=== PATIENT | male | born 1945 | race African-American/Black ===

== ENCOUNTER 2021-08-23 13:53 | Inpatient (IN) | payer MEDICARE ==
[~2021-08-23 13:53] MED LIST: Iopamidol-370 76% 500 ML 1 ML ONE
[2021-08-23 15:20] LABS: #Eosinphils 0.5 thou/uL (0.0-0.7); #Lymphocytes 1.8 thou/uL (1.20-3.40); #Neutrophils 9.2 thou/uL (1.40-6.50); %Eosinophils 3.7 % (0.0-10.0); %Lymphocytes 14.5 % (21.0-51.0); %Monocytes 7.8 % (0.0-10.0); Hemoglobin 14.9 g/dL (14.0-18.0); Mean Corpuscular Hemoglobin 33.2 pg (27.0-31.0); Mean Platelet Volume 7.1 fL (7.4-10.4); Platelet Count 259 thou/uL (130-400); RBC Distribution Width 12.8 % (11.5-14.5); Red Blood Cell (RBC) Count 4.49 mill/uL (4.70-6.10); White Blood Cell (WBC) Count 12.5 thou/uL (4.8-10.8)
[2021-08-23 15:39] LABS: ALT (SGPT) 25 U/L (8-55); AST (SGOT) 50 U/L (5-34); Albumin 3.9 g/dL (3.4-4.8); Alkaline Phosphatase 85 U/L (40-110); Anion Gap 10 mmol/L (10-20); BUN (Urea Nitrogen) 15 mg/dL (8.4-25.7); Bilirubin, Total 0.7 mg/dL (0.2-1.2); Calc. Creatinine Clearance 0 mL/min (70-130); Calcium 9.8 mg/dL (7.8-10.44); Carbon Dioxide 30 mmol/L (23-31); Chloride 99 mmol/L (98-107); Globulin 4.2 g/dL (2.4-3.5); Glucose 127 mg/dL (83-110); Potassium 4.4 mmol/L (3.5-5.1); Protein, Total 8.1 g/dL (5.8-8.1); Sodium 135 mmol/L (136-145)
[2021-08-23 16:07] LABS: CKMB 51.4 ng/mL (0-6.6)
[2021-08-23] MEDS ORDERED: Acetaminophen 500 MG TAB ONE (16:19)
[2021-08-23] MEDS ORDERED: Aspirin Chewable 81 MG TAB ONE (17:46)
[2021-08-23] MEDS ORDERED: Enoxaparin Sodium 100 MG/ML SYRINGE ONE (17:47)
[2021-08-23] MEDS ORDERED: Ondansetron PF 4 MG/2 ML Vial IVP PRN (21:00)
[2021-08-23] MEDS ORDERED: Ondansetron ODT 4 MG TAB SL PRN (21:00)
[2021-08-23] MEDS ORDERED: Acetaminophen 325 MG TAB PO PRN (21:00)
[2021-08-23 21:22] LABS: CKMB 43.6 ng/mL (0-6.6)
[2021-08-23] MEDS ORDERED: Lorazepam 2 MG/ML VIAL SLOW IVP PRN (22:30)
[2021-08-24] MEDS: Sodium Chloride 0.9% 1,000 ML IV SCH ×3 (00:27→22:25)
[2021-08-24 00:32] LABS: Critical Call Chem Troponin I 2NO.LN; Troponin I 10.525 ng/mL (< 0.028)
[2021-08-24 01:10] VITALS: BMI 27.1
[2021-08-24 03:12] LABS: Bacteria/HPF None Seen HPF (None Seen); Bilirubin Negative (Negative); Blood, Urine Negative (Negative); Clarity Clear (Clear); Glucose, Urine (Dipstick) Normal (Negative); Ketone, Urine Negative (Negative); Leukocyte 25 Leu/uL (Negative); Nitrite Negative (Negative); Protein, Urine (Dipstick) 30 mg/dL (Neg-Trace); Squamous Epithelial 0-3 HPF (0-3); pH, Urine 5.5 (5.0-9.0)
[2021-08-24 03:22] LABS: Amphetamine Not Detected (NotDetected); Barbiturates Screen Not Detected (NotDetected); Benzodiazepine Screen Not Detected (NotDetected); Cocaine Metabolite Screen Not Detected (NotDetected); Methadone Not Detected (NotDetected); Methamphetamine Not Detected (NotDetected); Opiate Screen Not Detected (NotDetected); Oxycodone Screen Not Detected (NotDetected); Phencyclidine (PCP) Not Detected (NotDetected); THC/Cannabinoid Screen Not Detected (NotDetected); Tricyclic Screen Not Detected (NotDetected)
[2021-08-24 03:23] LABS: Specific Gravity, Urine 1.058 (1.002-1.036); Urine Culture Reflex Yes Yes
[2021-08-24 04:53] LABS: #Eosinphils 0.4 thou/uL (0.0-0.7); #Lymphocytes 1.9 thou/uL (1.20-3.40); #Neutrophils 6.4 thou/uL (1.40-6.50); %Basophils 0.1 % (0.0-1.0); %Eosinophils 3.7 % (0.0-10.0); %Lymphocytes 19.5 % (21.0-51.0); %Monocytes 10.3 % (0.0-10.0); %Neutrophils 66.4 % (42.0-75.0); Hemoglobin 13.9 g/dL (14.0-18.0); Mean Corpuscular Hemoglobin 34.3 pg (27.0-31.0); Mean Platelet Volume 7.8 fL (7.4-10.4); Platelet Count 215 thou/uL (130-400); RBC Distribution Width 13.1 % (11.5-14.5); Red Blood Cell (RBC) Count 4.04 mill/uL (4.70-6.10); White Blood Cell (WBC) Count 9.7 thou/uL (4.8-10.8)
[2021-08-24 05:20] LABS: Anion Gap 12 mmol/L (10-20); BUN (Urea Nitrogen) 17 mg/dL (8.4-25.7); Calc. Creatinine Clearance 69 mL/min (70-130); Carbon Dioxide 23 mmol/L (23-31); Chloride 104 mmol/L (98-107); Glucose 114 mg/dL (83-110); Sodium 135 mmol/L (136-145)
[2021-08-24] MEDS ORDERED: Enoxaparin Sodium 40 MG/0.4 ML SYRINGE SC SCH (09:00)
[2021-08-24] MEDS ORDERED: Clopidogrel Bisulfate 75 MG TAB PO SCH ×2 (12:30→13:00)
[2021-08-24] MEDS: Carvedilol 6.25 MG TAB PO SCH (16:16)
[2021-08-24 17:09] LABS: SARS-CoV-2 PCR by NAA Not Detected (NotDetected)
[2021-08-24] MEDS ORDERED: Enoxaparin Sodium 80 MG/0.8 ML SYRINGE SC SCH (21:00)
[2021-08-24] MEDS: Atorvastatin Calcium 20 MG TAB PO SCH (22:12)
[2021-08-24] MEDS: Amiodarone 200 MG TAB PO SCH (22:12)
[2021-08-24] MEDS: Amlodipine 5 MG TAB PO SCH (22:12)
[2021-08-25 04:41] LABS: #Eosinphils 0.5 thou/uL (0.0-0.7); #Lymphocytes 1.8 thou/uL (1.20-3.40); #Monocytes 0.7 thou/uL (0.11-0.59); #Neutrophils 5.3 thou/uL (1.40-6.50); %Basophils 0.3 % (0.0-1.0); %Eosinophils 6.2 % (0.0-10.0); %Lymphocytes 21.9 % (21.0-51.0); %Monocytes 7.8 % (0.0-10.0); %Neutrophils 63.7 % (42.0-75.0); Hemoglobin 13.4 g/dL (14.0-18.0); Mean Corpuscular Hemoglobin 33.2 pg (27.0-31.0); Mean Platelet Volume 7.2 fL (7.4-10.4); Platelet Count 196 thou/uL (130-400); Red Blood Cell (RBC) Count 4.05 mill/uL (4.70-6.10); White Blood Cell (WBC) Count 8.4 thou/uL (4.8-10.8)
[2021-08-25 04:51] LABS: Anion Gap 12 mmol/L (10-20); BUN (Urea Nitrogen) 16 mg/dL (8.4-25.7); Calc. Creatinine Clearance 70 mL/min (70-130); Calcium 8.5 mg/dL (7.8-10.44); Carbon Dioxide 23 mmol/L (23-31); Chloride 105 mmol/L (98-107); Glucose 118 mg/dL (83-110); Potassium 3.9 mmol/L (3.5-5.1); Sodium 136 mmol/L (136-145)
[2021-08-25] MEDS: Aspirin 81 mg Enteric Coated Tablet PO SCH (08:40)
[2021-08-25] MEDS: Amiodarone 200 MG TAB PO SCH ×2 (08:40→21:30)
[2021-08-25] MEDS: Clopidogrel Bisulfate 75 MG TAB PO SCH (08:41)
[2021-08-25] MEDS: Carvedilol 6.25 MG TAB PO SCH ×2 (08:41→16:30)
[2021-08-25] MEDS ORDERED: Amiodarone 200 MG TAB PO SCH (09:00)
[2021-08-25] MEDS ORDERED: Clopidogrel Bisulfate 75 MG TAB PO SCH (09:00)
[2021-08-25] MEDS ORDERED: Communication Order-Pharmacy FS SCH (09:45)
[2021-08-25] MEDS ORDERED: Enoxaparin Sodium 40 MG/0.4 ML SYRINGE SC SCH ×2 (09:45→21:00)
[2021-08-25] MEDS: Sodium Chloride 0.9% 1,000 ML IV SCH ×2 (16:30→21:37)
[2021-08-25] MEDS: Atorvastatin Calcium 20 MG TAB PO SCH (21:30)
[2021-08-25] MEDS: Amlodipine 5 MG TAB PO SCH (21:30)
[2021-08-26 04:15] LABS: #Eosinphils 0.5 thou/uL (0.0-0.7); #Lymphocytes 1.7 thou/uL (1.20-3.40); #Monocytes 0.8 thou/uL (0.11-0.59); #Neutrophils 4.2 thou/uL (1.40-6.50); %Basophils 0.6 % (0.0-1.0); %Eosinophils 6.8 % (0.0-10.0); %Lymphocytes 22.9 % (21.0-51.0); %Neutrophils 58.7 % (42.0-75.0); Hemoglobin 13.6 g/dL (14.0-18.0); Mean Corpuscular HGB CONC 32.3 g/dL (32.0-36.0); Mean Corpuscular Hemoglobin 32.9 pg (27.0-31.0); Mean Platelet Volume 7.1 fL (7.4-10.4); Platelet Count 195 thou/uL (130-400); RBC Distribution Width 12.7 % (11.5-14.5); Red Blood Cell (RBC) Count 4.14 mill/uL (4.70-6.10); White Blood Cell (WBC) Count 7.2 thou/uL (4.8-10.8)
[2021-08-26 04:36] LABS: Anion Gap 10 mmol/L (10-20); BUN (Urea Nitrogen) 13 mg/dL (8.4-25.7); Calc. Creatinine Clearance 76 mL/min (70-130); Calcium 9.1 mg/dL (7.8-10.44); Carbon Dioxide 26 mmol/L (23-31); Chloride 104 mmol/L (98-107); Glucose 133 mg/dL (83-110); Potassium 3.8 mmol/L (3.5-5.1); Sodium 136 mmol/L (136-145)
[2021-08-26] MEDS: Carvedilol 6.25 MG TAB PO SCH ×2 (05:36→17:38)
[2021-08-26] MEDS: Aspirin 81 mg Enteric Coated Tablet PO SCH (05:36)
[2021-08-26] MEDS: Amiodarone 200 MG TAB PO SCH ×2 (05:36→20:06)
[2021-08-26] MEDS: Clopidogrel Bisulfate 75 MG TAB PO SCH (05:37)
[2021-08-26] MEDS ORDERED: Sodium Chloride 0.9% 1,000 ML IV SCH ×2 (06:00→09:15)
[2021-08-26] MEDS ORDERED: Heparin 10,000 UNITS/ 10 ML VIAL ONE (06:30)
[2021-08-26] MEDS ORDERED: Midazolam HCl 2 mg/2 ml Vial ONE (08:15)
[2021-08-26] MEDS ORDERED: Fentanyl 100 MCG/2 ML VIAL ONE (08:15)
[2021-08-26] MEDS ORDERED: Protamine Sulfate 50 MG/5 ML VIAL ONE (08:49)
[2021-08-26] MEDS ORDERED: Nitroglycerin 0.4 MG TAB (25 Tab Bottle) SL PRN (09:14)
[2021-08-26] MEDS ORDERED: Acetaminophen/Codeine 30-300mg Tablet PO PRN ×2 (09:14)
[2021-08-26] MEDS ORDERED: Sodium Chloride 0.9% 200 ML IV PRN (09:14)
[2021-08-26] MEDS ORDERED: Iopamidol 370 76% 100 ML VIAL ONE (09:34)
[2021-08-26] MEDS ORDERED: Iopamidol 370 76% 50 ML VIAL FS ONE (09:34)
[2021-08-26] MEDS ORDERED: Lisinopril 10 MG TAB PO SCH (17:00)
[2021-08-26] MEDS ORDERED: Carvedilol 6.25 MG TAB PO SCH (17:00)
[2021-08-26] MEDS: Atorvastatin Calcium 20 MG TAB PO SCH (20:07)
[2021-08-26] MEDS: Amlodipine 5 MG TAB PO SCH (20:07)
[2021-08-27] MEDS ORDERED: Magnesium Citrate 300 ML BOT PO SCH (08:45)
[2021-08-27] MEDS: Clopidogrel Bisulfate 75 MG TAB PO SCH (08:53)
[2021-08-27] MEDS: Aspirin 81 mg Enteric Coated Tablet PO SCH (08:53)
[2021-08-27] MEDS: Amiodarone 200 MG TAB PO SCH (08:53)
[2021-08-27] MEDS: Carvedilol 6.25 MG TAB PO SCH (08:53)
[2021-08-27] MEDS ORDERED: Lisinopril 10 MG TAB PO SCH (09:00)
[2021-08-27] MEDS ORDERED: Senokot S 8.6-50 MG TAB PO SCH (09:00)
[2021-08-27 11:54] VITALS: TEMP 98.8
[2021-08-27 12:05] VITALS: BP 133/80
== END 2021-08-27 15:04 | disposition home or self-care (01) | DRG 281 ==
LOC: ERS 13:53 → 2NO 20:39
PROVIDERS: ADMIT Internal Medicine; ATTEND Family Medicine
PROC: 4A023N7 Measurement of Cardiac Sampling and Pressure, Left Heart, Percutaneous Approach (ICD-10-PCS; principal; 2021-08-26)
PROC: B2151ZZ Fluoroscopy of Left Heart using Low Osmolar Contrast (ICD-10-PCS; 2021-08-26)
PROC: B2131ZZ Fluoroscopy of Multiple Coronary Artery Bypass Grafts using Low Osmolar Contrast (ICD-10-PCS; 2021-08-26)
PROC: B2111ZZ Fluoroscopy of Multiple Coronary Arteries using Low Osmolar Contrast (ICD-10-PCS; 2021-08-26)
DX: T82.897A Other specified complication of cardiac prosthetic devices, implants and grafts, initial encounter (principal); I21.A9 Other myocardial infarction type; N17.9 Acute kidney failure, unspecified; G40.909 Epilepsy, unspecified, not intractable, without status epilepticus; I10 Essential (primary) hypertension; Z20.822 Contact with and (suspected) exposure to COVID-19; I25.10 Atherosclerotic heart disease of native coronary artery without angina pectoris; Z95.0 Presence of cardiac pacemaker; Z95.5 Presence of coronary angioplasty implant and graft; I25.2 Old myocardial infarction; Z79.899 Other long term (current) drug therapy; Z95.1 Presence of aortocoronary bypass graft; Z88.0 Allergy status to penicillin; Z88.5 Allergy status to narcotic agent; G93.89 Other specified disorders of brain; Y83.2 Surgical operation with anastomosis, bypass or graft as the cause of abnormal reaction of the patient, or of later complication, without mention of misadventure at the time of the procedure
CPT/HCPCS: 36415; 70496; 70498; 70551; 71045; 80048; 80053; 80306; 81001; 82553; 83605; 84146; 84443; 84484; 85025; 85347; 87086; 93005; 93459; 95819; 95957; 96360; 96361; 96372; 97139; 99152; 99153; J1644; J1650; J2250; J2405; J2720; J3010; J7050; Q9967; U0003; U0005

== ENCOUNTER 2021-09-22 13:55 | Inpatient (IN) | payer MEDICARE ==
[2021-09-22 14:34] LABS: Bilirubin Negative (Negative); Blood, Urine Negative (Negative); Clarity Clear (Clear); Glucose, Urine (Dipstick) Normal (Negative); Ketone, Urine Negative (Negative); Leukocyte Negative Leu/uL (Negative); Nitrite Negative (Negative); Protein, Urine (Dipstick) Negative (Neg-Trace); Specific Gravity, Urine 1.014 (1.002-1.036)
[2021-09-22 15:00] LABS: #Eosinphils 0.2 thou/uL (0.0-0.7); #Lymphocytes 1.6 thou/uL (1.20-3.40); #Monocytes 0.7 thou/uL (0.11-0.59); #Neutrophils 4.4 thou/uL (1.40-6.50); %Basophils 0.6 % (0.0-1.0); %Eosinophils 2.8 % (0.0-10.0); %Lymphocytes 22.5 % (21.0-51.0); %Monocytes 10.6 % (0.0-10.0); %Neutrophils 63.5 % (42.0-75.0); Hemoglobin 14.7 g/dL (14.0-18.0); Mean Corpuscular HGB CONC 31.2 g/dL (32.0-36.0); Mean Corpuscular Hemoglobin 32.2 pg (27.0-31.0); Mean Platelet Volume 7.7 fL (7.4-10.4); Platelet Count 168 thou/uL (130-400); RBC Distribution Width 12.2 % (11.5-14.5); Red Blood Cell (RBC) Count 4.58 mill/uL (4.70-6.10)
[2021-09-22 15:24] LABS: ALT (SGPT) 50 U/L (8-55); AST (SGOT) 19 U/L (5-34); Albumin 3.7 g/dL (3.4-4.8); Alkaline Phosphatase 96 U/L (40-110); Anion Gap 13 mmol/L (10-20); BUN (Urea Nitrogen) 13 mg/dL (8.4-25.7); Bilirubin, Total 0.8 mg/dL (0.2-1.2); Calc. Creatinine Clearance 0 mL/min (70-130); Calcium 9.1 mg/dL (7.8-10.44); Carbon Dioxide 26 mmol/L (23-31); Chloride 103 mmol/L (98-107); Estimated GFR 66; Globulin 3.5 g/dL (2.4-3.5); Glucose 109 mg/dL (83-110); Potassium 3.6 mmol/L (3.5-5.1); Protein, Total 7.2 g/dL (5.8-8.1); Sodium 138 mmol/L (136-145)
[2021-09-22] MEDS ORDERED: Doxycycline 100 MG CAP PO SCH (16:45)
[2021-09-22] MEDS ORDERED: Ondansetron PF 4 MG/2 ML Vial IVP PRN (18:06)
[2021-09-22] MEDS ORDERED: Senokot S 8.6-50 MG TAB PO PRN (18:06)
[2021-09-22 18:15] LABS: Troponin I 0.012 ng/mL (< 0.028)
[2021-09-22] MEDS ORDERED: Lorazepam 2 MG/ML VIAL SLOW IVP PRN (18:28)
[2021-09-22] MEDS ORDERED: Melatonin 3 MG TAB PO PRN (18:28)
[2021-09-22] MEDS ORDERED: Guaifenesin DM 100-10/5 ML UDCUP PO PRN ×2 (18:49→18:53)
[2021-09-22] MEDS ORDERED: hydrALAZINE 20 MG/ML VIAL SLOW IVP PRN (18:52)
[2021-09-22 19:06] LABS: SARS-CoV-2 NAA Rapid Test Not Detected (NotDetected)
[2021-09-22] MEDS ORDERED: Carvedilol 6.25 MG TAB PO SCH (20:00)
[2021-09-22] MEDS ORDERED: Pantoprazole 40 MG VIAL IVP SCH (21:00)
[2021-09-22 21:08] LABS: Troponin I Less than 0.010 ng/mL (< 0.028)
[2021-09-22 22:16] VITALS: BMI 29.0
[2021-09-22] MEDS: Sodium Chloride 0.9% 1,000 ML IV SCH (22:28)
[2021-09-22] MEDS: Amiodarone 200 MG TAB PO SCH (22:29)
[2021-09-22] MEDS: Atorvastatin Calcium 20 MG TAB PO SCH (22:29)
[2021-09-23 05:54] LABS: #Eosinphils 0.2 thou/uL (0.0-0.7); #Lymphocytes 1.7 thou/uL (1.20-3.40); #Monocytes 0.7 thou/uL (0.11-0.59); #Neutrophils 4.5 thou/uL (1.40-6.50); %Basophils 0.5 % (0.0-1.0); %Eosinophils 3.3 % (0.0-10.0); %Lymphocytes 23.5 % (21.0-51.0); %Monocytes 9.4 % (0.0-10.0); %Neutrophils 63.3 % (42.0-75.0); Hemoglobin 13.8 g/dL (14.0-18.0); Mean Corpuscular HGB CONC 30.9 g/dL (32.0-36.0); Mean Corpuscular Hemoglobin 31.8 pg (27.0-31.0); Mean Platelet Volume 8.2 fL (7.4-10.4); Platelet Count 170 thou/uL (130-400); RBC Distribution Width 12.3 % (11.5-14.5); Red Blood Cell (RBC) Count 4.33 mill/uL (4.70-6.10); White Blood Cell (WBC) Count 7.1 thou/uL (4.8-10.8)
[2021-09-23 06:37] LABS: ALT (SGPT) 48 U/L (8-55); AST (SGOT) 17 U/L (5-34); Albumin 3.3 g/dL (3.4-4.8); Alkaline Phosphatase 89 U/L (40-110); Anion Gap 14 mmol/L (10-20); BUN (Urea Nitrogen) 13 mg/dL (8.4-25.7); Bilirubin, Total 0.6 mg/dL (0.2-1.2); Calc. Creatinine Clearance 74 mL/min (70-130); Calcium 8.6 mg/dL (7.8-10.44); Carbon Dioxide 23 mmol/L (23-31); Chloride 105 mmol/L (98-107); Estimated GFR 72; Globulin 3.3 g/dL (2.4-3.5); Glucose 84 mg/dL (83-110); Potassium 3.8 mmol/L (3.5-5.1); Protein, Total 6.6 g/dL (5.8-8.1); Sodium 138 mmol/L (136-145)
[2021-09-23] MEDS: Amiodarone 200 MG TAB PO SCH ×2 (08:52→21:04)
[2021-09-23] MEDS: Carvedilol 6.25 MG TAB PO SCH ×2 (08:52→17:28)
[2021-09-23] MEDS: Doxycycline 100 MG CAP PO SCH ×2 (08:52→21:04)
[2021-09-23] MEDS: Lisinopril 20 MG TAB PO SCH (08:53)
[2021-09-23] MEDS: Aspirin 81 mg Enteric Coated Tablet PO SCH (08:53)
[2021-09-23] MEDS: Sodium Chloride 0.9% 1,000 ML IV SCH (17:29)
[2021-09-23] MEDS: Atorvastatin Calcium 20 MG TAB PO SCH (21:04)
[2021-09-24 05:42] LABS: Cardiac Risk 3.7 (Less than 4.5)
[2021-09-24] MEDS ORDERED: Lidocaine 1% w/Epinephrine 1:100K 20 ML VIAL ONE (06:51)
[2021-09-24] MEDS: Doxycycline 100 MG CAP PO SCH ×2 (10:14→21:17)
[2021-09-24] MEDS: Amiodarone 200 MG TAB PO SCH (10:14)
[2021-09-24] MEDS: Lisinopril 20 MG TAB PO SCH (10:14)
[2021-09-24] MEDS: Aspirin 81 mg Enteric Coated Tablet PO SCH (10:14)
[2021-09-24] MEDS: Carvedilol 6.25 MG TAB PO SCH ×2 (10:14→16:44)
[2021-09-24] MEDS: Acetaminophen 325 MG TAB PO PRN (11:18)
[2021-09-24] MEDS: Sodium Chloride 0.9% 1,000 ML IV SCH (16:44)
[2021-09-24] MEDS: levETIRAcetam 500 MG TAB PO SCH (21:17)
[2021-09-24] MEDS: Atorvastatin Calcium 40 MG TAB PO SCH (21:17)
[2021-09-25] MEDS: Acetaminophen 325 MG TAB PO PRN ×2 (01:59→08:24)
[2021-09-25] MEDS: Doxycycline 100 MG CAP PO SCH ×2 (08:24→20:14)
[2021-09-25] MEDS: Carvedilol 6.25 MG TAB PO SCH ×2 (08:25→16:22)
[2021-09-25] MEDS: levETIRAcetam 500 MG TAB PO SCH ×2 (08:25→20:15)
[2021-09-25] MEDS: Aspirin 81 mg Enteric Coated Tablet PO SCH (08:26)
[2021-09-25] MEDS: Lisinopril 20 MG TAB PO SCH (08:26)
[2021-09-25] MEDS: Sodium Chloride 0.9% 1,000 ML IV SCH ×2 (08:27→16:22)
[2021-09-25] MEDS: Amiodarone 200 MG TAB PO SCH (08:27)
[2021-09-25] MEDS: Atorvastatin Calcium 40 MG TAB PO SCH (20:14)
[2021-09-26] MEDS: levETIRAcetam 500 MG TAB PO SCH (08:09)
[2021-09-26] MEDS: Doxycycline 100 MG CAP PO SCH (08:09)
[2021-09-26] MEDS: Amiodarone 200 MG TAB PO SCH (08:09)
[2021-09-26] MEDS: Aspirin 81 mg Enteric Coated Tablet PO SCH (08:09)
[2021-09-26] MEDS: Lisinopril 20 MG TAB PO SCH (08:09)
[2021-09-26] MEDS: Carvedilol 6.25 MG TAB PO SCH (08:10)
[2021-09-26 12:10] VITALS: BP 155/86; TEMP 97.7
== END 2021-09-26 15:18 | DRG 41 ==
LOC: ERS 13:55 → NEURO 16:48 → OBSVTOIN 09-23 17:02
PROVIDERS: ADMIT Family Medicine; ATTEND Internal Medicine
PROC: 4A10X4Z Monitoring of Central Nervous Electrical Activity, External Approach (ICD-10-PCS; 2021-09-23)
PROC: 0JH632Z Insertion of Monitoring Device into Chest Subcutaneous Tissue and Fascia, Percutaneous Approach (ICD-10-PCS; principal; 2021-09-24)
DX: R56.9 Unspecified convulsions (principal); I48.92 Unspecified atrial flutter; N17.9 Acute kidney failure, unspecified; E87.1 Hypo-osmolality and hyponatremia; I65.29 Occlusion and stenosis of unspecified carotid artery; I10 Essential (primary) hypertension; E78.5 Hyperlipidemia, unspecified; J40 Bronchitis, not specified as acute or chronic; I25.10 Atherosclerotic heart disease of native coronary artery without angina pectoris; E78.00 Pure hypercholesterolemia, unspecified; Z20.822 Contact with and (suspected) exposure to COVID-19; Z79.899 Other long term (current) drug therapy; Z79.82 Long term (current) use of aspirin; Z88.0 Allergy status to penicillin; Z88.8 Allergy status to other drugs, medicaments and biological substances; I25.2 Old myocardial infarction; Z95.1 Presence of aortocoronary bypass graft; I49.8 Other specified cardiac arrhythmias
CPT/HCPCS: 33285; 36415; 70450; 71045; 80053; 80061; 81003; 83880; 84484; 85025; 93005; 93010; 93306; 93880; 95712; 95819; 95957; 96374; C1764; C9113; G0378; J2405; J7050; U0002

== ENCOUNTER 2021-10-08 11:54 | Inpatient (IN) | payer MEDICARE ==
[2021-10-08 13:16] LABS: #Eosinphils 0.1 thou/uL (0.0-0.7); #Lymphocytes 1.7 thou/uL (1.20-3.40); #Neutrophils 5.8 thou/uL (1.40-6.50); %Basophils 0.4 % (0.0-1.0); %Eosinophils 1.7 % (0.0-10.0); %Monocytes 11.3 % (0.0-10.0); %Neutrophils 66.7 % (42.0-75.0); Hemoglobin 14.5 g/dL (14.0-18.0); Mean Platelet Volume 10.1 fL (7.4-10.4); Platelet Count 177 thou/uL (130-400); RBC Distribution Width 12.9 % (11.5-14.5); Red Blood Cell (RBC) Count 4.54 mill/uL (4.70-6.10); White Blood Cell (WBC) Count 8.6 thou/uL (4.8-10.8)
[2021-10-08 14:21] LABS: Bilirubin Negative (Negative); Blood, Urine Negative (Negative); Clarity Clear (Clear); Glucose, Urine (Dipstick) Normal (Negative); Ketone, Urine Negative (Negative); Leukocyte Negative Leu/uL (Negative); Nitrite Negative (Negative); Protein, Urine (Dipstick) 10 mg/dL (Neg-Trace); Specific Gravity, Urine 1.016 (1.002-1.036); Urobilinogen Normal mg/dL (Less than 2); pH, Urine 6.5 (5.0-9.0)
[2021-10-08] MEDS ORDERED: Senokot S 8.6-50 MG TAB PO PRN (16:31)
[2021-10-08] MEDS ORDERED: Acetaminophen 325 MG TAB PO PRN (16:35)
[2021-10-08] MEDS ORDERED: Ondansetron PF 4 MG/2 ML Vial IVP PRN (16:35)
[2021-10-08 16:47] LABS: Albumin 3.8 g/dL (3.4-4.8)
[2021-10-08 16:48] LABS: Chloride 103 mmol/L (98-107); Potassium 4.1 mmol/L (3.5-5.1); Sodium 138 mmol/L (136-145)
[2021-10-08 16:49] LABS: Calcium 9.8 mg/dL (7.8-10.44); Glucose 87 mg/dL (83-110)
[2021-10-08 16:50] LABS: Protein, Total 7.8 g/dL (5.8-8.1)
[2021-10-08 16:51] LABS: Anion Gap 16 mmol/L (10-20); Bilirubin, Total 0.8 mg/dL (0.2-1.2); Carbon Dioxide 23 mmol/L (23-31)
[2021-10-08 16:52] LABS: Alkaline Phosphatase 78 U/L (40-110)
[2021-10-08 16:53] LABS: Calc. Creatinine Clearance 0 mL/min (70-130); Estimated GFR 72
[2021-10-08 16:54] LABS: AST (SGOT) 20 U/L (5-34); BUN (Urea Nitrogen) 12 mg/dL (8.4-25.7)
[2021-10-08 16:55] LABS: ALT (SGPT) 56 U/L (8-55)
[2021-10-08 16:56] LABS: Lipase 19 U/L (8-78)
[2021-10-08 20:06] VITALS: BMI 25.8
[2021-10-08] MEDS: Sodium Chloride 0.9% 1,000 ML IV SCH (20:25)
[2021-10-08] MEDS: Heparin 5,000 UNITS/ML VIAL SC SCH (22:05)
[2021-10-08] MEDS: Atorvastatin Calcium 40 MG TAB PO SCH (22:05)
[2021-10-08] MEDS: levETIRAcetam 500 MG TAB PO SCH (22:05)
[2021-10-09 04:28] LABS: #Eosinphils 0.1 thou/uL (0.0-0.7); #Monocytes 0.8 thou/uL (0.11-0.59); %Basophils 0.5 % (0.0-1.0); %Eosinophils 1.7 % (0.0-10.0); %Lymphocytes 24.9 % (21.0-51.0); %Monocytes 9.9 % (0.0-10.0); Hemoglobin 14.2 g/dL (14.0-18.0); Mean Corpuscular HGB CONC 31.7 g/dL (32.0-36.0); Mean Corpuscular Hemoglobin 32.5 pg (27.0-31.0); Mean Platelet Volume 8.3 fL (7.4-10.4); Platelet Count 165 thou/uL (130-400); RBC Distribution Width 12.3 % (11.5-14.5); Red Blood Cell (RBC) Count 4.37 mill/uL (4.70-6.10); White Blood Cell (WBC) Count 7.9 thou/uL (4.8-10.8)
[2021-10-09 04:45] LABS: ALT (SGPT) 47 U/L (8-55); AST (SGOT) 18 U/L (5-34); Albumin 3.2 g/dL (3.4-4.8); Alkaline Phosphatase 72 U/L (40-110); Anion Gap 17 mmol/L (10-20); BUN (Urea Nitrogen) 11 mg/dL (8.4-25.7); Bilirubin, Total 0.4 mg/dL (0.2-1.2); Calc. Creatinine Clearance 76 mL/min (70-130); Calcium 9.1 mg/dL (7.8-10.44); Carbon Dioxide 20 mmol/L (23-31); Chloride 104 mmol/L (98-107); Estimated GFR 85; Globulin 3.5 g/dL (2.4-3.5); Glucose 132 mg/dL (83-110); Potassium 3.7 mmol/L (3.5-5.1); Protein, Total 6.7 g/dL (5.8-8.1); Sodium 137 mmol/L (136-145)
[2021-10-09] MEDS: Sodium Chloride 0.9% 1,000 ML IV SCH ×2 (06:02→15:14)
[2021-10-09] MEDS: Heparin 5,000 UNITS/ML VIAL SC SCH ×3 (09:33→20:30)
[2021-10-09] MEDS: levETIRAcetam 500 MG TAB PO SCH ×2 (09:33→20:30)
[2021-10-09] MEDS: Aspirin 81 mg Enteric Coated Tablet PO SCH (09:33)
[2021-10-09] MEDS: Amiodarone 200 MG TAB PO SCH (09:33)
[2021-10-09] MEDS: Clopidogrel Bisulfate 75 MG TAB PO SCH (09:33)
[2021-10-09] MEDS ORDERED: Iopamidol-370 76% 500 ML 1 ML ONE (14:01)
[2021-10-09] MEDS: Carvedilol 6.25 MG TAB PO SCH (17:30)
[2021-10-09] MEDS: Atorvastatin Calcium 40 MG TAB PO SCH (20:30)
[2021-10-10 04:43] LABS: Anion Gap 15 mmol/L (10-20); BUN (Urea Nitrogen) 10 mg/dL (8.4-25.7); Calc. Creatinine Clearance 77 mL/min (70-130); Carbon Dioxide 23 mmol/L (23-31); Chloride 105 mmol/L (98-107); Estimated GFR 86; Glucose 95 mg/dL (83-110); Potassium 3.6 mmol/L (3.5-5.1); Sodium 139 mmol/L (136-145)
[2021-10-10 05:46] LABS: #Basophils 0.1 thou/uL (0.0-0.2); #Eosinphils 0.2 thou/uL (0.0-0.7); #Lymphocytes 1.7 thou/uL (1.20-3.40); #Monocytes 0.6 thou/uL (0.11-0.59); #Neutrophils 3.5 thou/uL (1.40-6.50); %Basophils 1.1 % (0.0-1.0); %Eosinophils 3.2 % (0.0-10.0); %Lymphocytes 27.9 % (21.0-51.0); %Monocytes 10.5 % (0.0-10.0); %Neutrophils 57.3 % (42.0-75.0); Hemoglobin 13.1 g/dL (14.0-18.0); Mean Corpuscular HGB CONC 31.1 g/dL (32.0-36.0); Mean Platelet Volume 8.5 fL (7.4-10.4); Platelet Count 162 thou/uL (130-400); RBC Distribution Width 12.4 % (11.5-14.5)
[2021-10-10] MEDS: Aspirin 81 mg Enteric Coated Tablet PO SCH (08:38)
[2021-10-10] MEDS: Heparin 5,000 UNITS/ML VIAL SC SCH ×2 (08:38→15:37)
[2021-10-10] MEDS: levETIRAcetam 500 MG TAB PO SCH (08:38)
[2021-10-10] MEDS: Amiodarone 200 MG TAB PO SCH (08:38)
[2021-10-10] MEDS: Clopidogrel Bisulfate 75 MG TAB PO SCH (08:38)
[2021-10-10] MEDS: Carvedilol 6.25 MG TAB PO SCH ×2 (08:38→17:31)
[2021-10-10 12:13] VITALS: TEMP 98.2
[2021-10-10 16:37] VITALS: BP 164/91
== END 2021-10-10 18:50 | disposition home or self-care (01) | DRG 312 ==
LOC: ERS 11:54 → ERHOLD 16:06 → 2NO 18:00 → OBSVTOIN 10-09 19:03
PROVIDERS: ADMIT Hospitalist; ATTEND Hospitalist
DX: R55 Syncope and collapse (principal); I48.92 Unspecified atrial flutter; Z20.822 Contact with and (suspected) exposure to COVID-19; Z66 Do not resuscitate; I25.10 Atherosclerotic heart disease of native coronary artery without angina pectoris; I10 Essential (primary) hypertension; I48.0 Paroxysmal atrial fibrillation; E78.00 Pure hypercholesterolemia, unspecified; G40.909 Epilepsy, unspecified, not intractable, without status epilepticus; Z95.5 Presence of coronary angioplasty implant and graft; Z88.0 Allergy status to penicillin; Z88.5 Allergy status to narcotic agent; Z79.899 Other long term (current) drug therapy; Z79.82 Long term (current) use of aspirin
CPT/HCPCS: 36415; 71045; 71275; 80048; 80053; 81003; 83605; 83690; 84484; 85025; 93005; 94760; 96360; 96361; 96372; G0378; J1644; J7050; Q9967

== ENCOUNTER 2021-10-14 19:28 | Emergency (ER) | payer MEDICARE ==
[~2021-10-14 19:28] MED LIST changes: +ISOVUE-370 76%-LOCM 1 ML ONE; -Iopamidol-370 76% 500 ML 1 ML ONE
[2021-10-14 20:27] LABS: #Eosinphils 0.2 thou/uL (0.0-0.7); #Lymphocytes 1.8 thou/uL (1.20-3.40); #Monocytes 0.8 thou/uL (0.11-0.59); #Neutrophils 5.3 thou/uL (1.40-6.50); %Basophils 0.5 % (0.0-1.0); %Eosinophils 2.9 % (0.0-10.0); %Lymphocytes 21.6 % (21.0-51.0); %Monocytes 9.2 % (0.0-10.0); %Neutrophils 65.8 % (42.0-75.0); Hemoglobin 15.8 g/dL (14.0-18.0); Mean Corpuscular HGB CONC 31.8 g/dL (32.0-36.0); Mean Corpuscular Hemoglobin 32.5 pg (27.0-31.0); Mean Platelet Volume 7.8 fL (7.4-10.4); Platelet Count 197 thou/uL (130-400); RBC Distribution Width 12.5 % (11.5-14.5); Red Blood Cell (RBC) Count 4.86 mill/uL (4.70-6.10); White Blood Cell (WBC) Count 8.1 thou/uL (4.8-10.8)
[2021-10-14 20:45] LABS: Bilirubin Negative (Negative); Blood, Urine Negative (Negative); Clarity Clear (Clear); Glucose, Urine (Dipstick) Normal (Negative); Ketone, Urine Negative (Negative); Leukocyte Negative Leu/uL (Negative); Nitrite Negative (Negative); Protein, Urine (Dipstick) Negative (Neg-Trace); Specific Gravity, Urine 1.008 (1.002-1.036); Urobilinogen Normal mg/dL (Less than 2)
[2021-10-14 21:03] LABS: ALT (SGPT) 48 U/L (8-55); AST (SGOT) 19 U/L (5-34); Alkaline Phosphatase 90 U/L (40-110); Anion Gap 16 mmol/L (10-20); BUN (Urea Nitrogen) 11 mg/dL (8.4-25.7); Bilirubin, Total 0.6 mg/dL (0.2-1.2); Calc. Creatinine Clearance 0 mL/min (70-130); Calcium 9.8 mg/dL (7.8-10.44); Carbon Dioxide 20 mmol/L (23-31); Chloride 102 mmol/L (98-107); Estimated GFR 81; Globulin 4.2 g/dL (2.4-3.5); Glucose 146 mg/dL (83-110); Lipase 24 U/L (8-78); Potassium 4.3 mmol/L (3.5-5.1); Protein, Total 8.2 g/dL (5.8-8.1); Sodium 134 mmol/L (136-145)
== END 2021-10-14 22:47 | disposition home or self-care (01) ==
LOC: ERS 19:28
DX: K59.00 Constipation, unspecified (principal); R33.9 Retention of urine, unspecified; I10 Essential (primary) hypertension; I25.2 Old myocardial infarction; Z79.899 Other long term (current) drug therapy; Z79.82 Long term (current) use of aspirin
CPT/HCPCS: 36415; 51702; 74177; 80053; 81003; 83690; 84484; 85025; 93005; Q9966

== ENCOUNTER 2021-10-16 23:18 | Emergency (ER) | payer MEDICARE ==
[2021-10-17 03:04] LABS: Bacteria/HPF None Seen HPF (None Seen); Bilirubin Negative (Negative); Blood, Urine 3+ (Negative); Clarity Clear (Clear); Glucose, Urine (Dipstick) Normal (Negative); Ketone, Urine Negative (Negative); Leukocyte 25 Leu/uL (Negative); Nitrite Negative (Negative); Protein, Urine (Dipstick) Negative (Neg-Trace); Specific Gravity, Urine 1.012 (1.002-1.036); Urobilinogen Normal mg/dL (Less than 2); pH, Urine 5.5 (5.0-9.0)
[2021-10-17 03:30] LABS: Squamous Epithelial 0-3 HPF (0-3)
[2021-10-17] MEDS ORDERED: Acetaminophen 500 MG TAB ONE (04:05)
== END 2021-10-17 04:10 | disposition home or self-care (01) ==
LOC: ERS 23:18
DX: R31.9 Hematuria, unspecified (principal); I25.2 Old myocardial infarction; I10 Essential (primary) hypertension; Z79.899 Other long term (current) drug therapy
CPT/HCPCS: 81003; 81015; 99283

== ENCOUNTER 2021-10-25 03:32 | Inpatient (IN) | payer MEDICARE ==
[2021-10-25 04:47] LABS: ALT (SGPT) 64 U/L (8-55); AST (SGOT) 24 U/L (5-34); Albumin 3.6 g/dL (3.4-4.8); Alkaline Phosphatase 98 U/L (40-110); Anion Gap 16 mmol/L (10-20); BUN (Urea Nitrogen) 9 mg/dL (8.4-25.7); Bilirubin, Total 1.7 mg/dL (0.2-1.2); Calc. Creatinine Clearance 0 mL/min (70-130); Calcium 9.6 mg/dL (7.8-10.44); Carbon Dioxide 23 mmol/L (23-31); Chloride 99 mmol/L (98-107); Estimated GFR 72; Glucose 144 mg/dL (83-110); Lipase 15 U/L (8-78); Potassium 3.7 mmol/L (3.5-5.1); Protein, Total 7.6 g/dL (5.8-8.1); Sodium 134 mmol/L (136-145)
[2021-10-25 05:03] LABS: Bilirubin Negative (Negative); Blood, Urine 2+ (Negative); Clarity Turbid (Clear); Glucose, Urine (Dipstick) Normal (Negative); Ketone, Urine Negative (Negative); Leukocyte 500 Leu/uL (Negative); Nitrite Negative (Negative); Protein, Urine (Dipstick) 50 mg/dL (Neg-Trace); Specific Gravity, Urine 1.018 (1.002-1.036); Squamous Epithelial 0-3 HPF (0-3); Urobilinogen 12 mg/dL (Less than 2); WBC/HPF Greater than 50 HPF (0-3)
[2021-10-25 05:04] LABS: Bacteria/HPF 1+ HPF (None Seen)
[2021-10-25 05:34] LABS: Hemoglobin 15.2 g/dL (14.0-18.0); Mean Corpuscular HGB CONC 33.3 g/dL (32.0-36.0); Mean Corpuscular Hemoglobin 33.3 pg (27.0-31.0); Mean Platelet Volume 7.7 fL (7.4-10.4); Platelet Count 205 thou/uL (130-400); RBC Distribution Width 12.8 % (11.5-14.5); Red Blood Cell (RBC) Count 4.57 mill/uL (4.70-6.10); White Blood Cell (WBC) Count 26.6 thou/uL (4.8-10.8)
[2021-10-25] MEDS ORDERED: Cefepime 2 GM VIAL ONE (05:40)
[2021-10-25 05:56] LABS: Band 18 % (5-11); Lymphocytes 4 % (21-51); MDiff Complete? YES; Monocytes 7 % (0-10); Neutrophil 71 % (42-75)
[2021-10-25] MEDS ORDERED: Vancomycin 1.5 GRAM/300 ML BAG 1.5 GM in Premix Bag 1 BAG IVPB SCH (06:30)
[2021-10-25] MEDS ORDERED: Ondansetron ODT 4 MG TAB PO PRN ×2 (08:26→09:47)
[2021-10-25] MEDS ORDERED: Ondansetron PF 4 MG/2 ML Vial IVP PRN ×2 (08:26→09:47)
[2021-10-25] MEDS ORDERED: Acetaminophen 325 MG TAB PO PRN (08:27)
[2021-10-25 08:39] VITALS: BMI 25.9
[2021-10-25] MEDS ORDERED: cloNIDine 0.1 MG TAB PO PRN (09:47)
[2021-10-25] MEDS ORDERED: hydrALAZINE 20 MG/ML VIAL SLOW IVP PRN (09:47)
[2021-10-25] MEDS ORDERED: Iopamidol 370 76% 100 ML VIAL ONE (16:06)
[2021-10-25] MEDS ORDERED: Cefepime 1 GM in Sodium Chloride 0.9% 100 ML IVPB SCH (17:00)
[2021-10-25] MEDS: Carvedilol 6.25 MG TAB PO SCH (17:24)
[2021-10-25] MEDS: Amlodipine 5 MG TAB PO SCH (20:55)
[2021-10-25] MEDS: Atorvastatin Calcium 40 MG TAB PO SCH (20:55)
[2021-10-25] MEDS: levETIRAcetam 500 MG TAB PO SCH (20:56)
[2021-10-26 04:55] LABS: #Eosinphils 0.1 thou/uL (0.0-0.7); #Lymphocytes 1.8 thou/uL (1.20-3.40); #Monocytes 1.6 thou/uL (0.11-0.59); #Neutrophils 19.6 thou/uL (1.40-6.50); %Eosinophils 0.3 % (0.0-10.0); %Monocytes 6.7 % (0.0-10.0); %Neutrophils 84.9 % (42.0-75.0); Hemoglobin 13.8 g/dL (14.0-18.0); Mean Corpuscular HGB CONC 31.4 g/dL (32.0-36.0); Mean Corpuscular Hemoglobin 32.3 pg (27.0-31.0); Mean Platelet Volume 7.9 fL (7.4-10.4); Platelet Count 168 thou/uL (130-400); RBC Distribution Width 13.2 % (11.5-14.5); Red Blood Cell (RBC) Count 4.26 mill/uL (4.70-6.10); White Blood Cell (WBC) Count 23.1 thou/uL (4.8-10.8)
[2021-10-26 05:15] LABS: Anion Gap 13 mmol/L (10-20); BUN (Urea Nitrogen) 13 mg/dL (8.4-25.7); Calc. Creatinine Clearance 83 mL/min (70-130); Calcium 9.6 mg/dL (7.8-10.44); Carbon Dioxide 23 mmol/L (23-31); Chloride 106 mmol/L (98-107); Estimated GFR 90; Glucose 111 mg/dL (83-110); Potassium 3.9 mmol/L (3.5-5.1); Sodium 138 mmol/L (136-145)
[2021-10-26] MEDS: Carvedilol 6.25 MG TAB PO SCH ×2 (08:45→17:07)
[2021-10-26] MEDS: Clopidogrel Bisulfate 75 MG TAB PO SCH (08:46)
[2021-10-26] MEDS: Aspirin 81 mg Enteric Coated Tablet PO SCH (08:46)
[2021-10-26] MEDS: levETIRAcetam 500 MG TAB PO SCH ×2 (08:46→21:13)
[2021-10-26] MEDS: Amiodarone 200 MG TAB PO SCH (08:46)
[2021-10-26] MEDS: Lisinopril 20 MG TAB PO SCH (08:47)
[2021-10-26] MEDS: Enoxaparin Sodium 40 MG/0.4 ML SYRINGE SC SCH (10:14)
[2021-10-26] MEDS: Amlodipine 5 MG TAB PO SCH (21:12)
[2021-10-26] MEDS: Atorvastatin Calcium 40 MG TAB PO SCH (21:13)
[2021-10-27] MEDS: Acetaminophen 325 MG TAB PO PRN (01:31)
[2021-10-27 04:36] LABS: #Eosinphils 0.2 thou/uL (0.0-0.7); #Lymphocytes 1.7 thou/uL (1.20-3.40); #Neutrophils 12.9 thou/uL (1.40-6.50); %Basophils 0.1 % (0.0-1.0); %Eosinophils 1.2 % (0.0-10.0); %Lymphocytes 10.6 % (21.0-51.0); %Monocytes 6.5 % (0.0-10.0); %Neutrophils 81.6 % (42.0-75.0); Hemoglobin 13.5 g/dL (14.0-18.0); Mean Corpuscular HGB CONC 32.1 g/dL (32.0-36.0); Mean Corpuscular Hemoglobin 32.6 pg (27.0-31.0); Mean Platelet Volume 7.8 fL (7.4-10.4); Platelet Count 191 thou/uL (130-400); RBC Distribution Width 13.1 % (11.5-14.5); Red Blood Cell (RBC) Count 4.13 mill/uL (4.70-6.10); White Blood Cell (WBC) Count 15.8 thou/uL (4.8-10.8)
[2021-10-27 04:50] LABS: Anion Gap 13 mmol/L (10-20); BUN (Urea Nitrogen) 15 mg/dL (8.4-25.7); Calc. Creatinine Clearance 88 mL/min (70-130); Calcium 9.3 mg/dL (7.8-10.44); Carbon Dioxide 25 mmol/L (23-31); Chloride 102 mmol/L (98-107); Estimated GFR 92; Glucose 98 mg/dL (83-110); Potassium 3.5 mmol/L (3.5-5.1); Sodium 136 mmol/L (136-145)
[2021-10-27] MEDS ORDERED: Senokot S 8.6-50 MG TAB PO PRN (10:12)
[2021-10-27] MEDS: Enoxaparin Sodium 40 MG/0.4 ML SYRINGE SC SCH (10:29)
[2021-10-27] MEDS: levETIRAcetam 500 MG TAB PO SCH ×2 (10:30→21:12)
[2021-10-27] MEDS: Lisinopril 20 MG TAB PO SCH (10:30)
[2021-10-27] MEDS: Silodosin 4 MG CAP PO SCH (10:35)
[2021-10-27] MEDS: Carvedilol 6.25 MG TAB PO SCH ×2 (10:35→17:43)
[2021-10-27] MEDS: Amiodarone 200 MG TAB PO SCH (10:35)
[2021-10-27] MEDS: Aspirin 81 mg Enteric Coated Tablet PO SCH (10:35)
[2021-10-27] MEDS: Clopidogrel Bisulfate 75 MG TAB PO SCH (10:35)
[2021-10-27] MEDS: Finasteride 5 MG TAB PO SCH (10:35)
[2021-10-27] MEDS ORDERED: Polyethylene Glycol 3350 17 GM Packet PO SCH (14:30)
[2021-10-27] MEDS: Atorvastatin Calcium 40 MG TAB PO SCH (21:12)
[2021-10-27] MEDS: Amlodipine 5 MG TAB PO SCH (21:12)
[2021-10-28] MEDS: Acetaminophen 325 MG TAB PO PRN (05:00)
[2021-10-28 06:58] LABS: #Eosinphils 0.2 thou/uL (0.0-0.7); #Lymphocytes 1.7 thou/uL (1.20-3.40); #Monocytes 0.8 thou/uL (0.11-0.59); #Neutrophils 6.2 thou/uL (1.40-6.50); %Basophils 0.5 % (0.0-1.0); %Eosinophils 2.6 % (0.0-10.0); %Lymphocytes 19.3 % (21.0-51.0); %Monocytes 8.6 % (0.0-10.0); %Neutrophils 68.9 % (42.0-75.0); Hemoglobin 13.6 g/dL (14.0-18.0); Mean Corpuscular HGB CONC 32.2 g/dL (32.0-36.0); Mean Corpuscular Hemoglobin 32.6 pg (27.0-31.0); Mean Platelet Volume 7.1 fL (7.4-10.4); Platelet Count 187 thou/uL (130-400); RBC Distribution Width 12.9 % (11.5-14.5); Red Blood Cell (RBC) Count 4.17 mill/uL (4.70-6.10)
[2021-10-28 07:05] LABS: Anion Gap 13 mmol/L (10-20); BUN (Urea Nitrogen) 10 mg/dL (8.4-25.7); Calc. Creatinine Clearance 92 mL/min (70-130); Calcium 9.4 mg/dL (7.8-10.44); Carbon Dioxide 26 mmol/L (23-31); Chloride 102 mmol/L (98-107); Estimated GFR 93; Glucose 102 mg/dL (83-110); Potassium 3.6 mmol/L (3.5-5.1); Sodium 137 mmol/L (136-145)
[2021-10-28] MEDS: Aspirin 81 mg Enteric Coated Tablet PO SCH (09:30)
[2021-10-28] MEDS: Amiodarone 200 MG TAB PO SCH (09:30)
[2021-10-28] MEDS: Finasteride 5 MG TAB PO SCH (09:30)
[2021-10-28] MEDS: levETIRAcetam 500 MG TAB PO SCH ×2 (09:30→19:48)
[2021-10-28] MEDS: Clopidogrel Bisulfate 75 MG TAB PO SCH (09:31)
[2021-10-28] MEDS: Carvedilol 6.25 MG TAB PO SCH ×2 (09:31→18:14)
[2021-10-28] MEDS: Lisinopril 20 MG TAB PO SCH (09:31)
[2021-10-28] MEDS: Silodosin 4 MG CAP PO SCH (09:31)
[2021-10-28] MEDS: Polyethylene Glycol 3350 17 GM Packet PO SCH (09:32)
[2021-10-28] MEDS: Enoxaparin Sodium 40 MG/0.4 ML SYRINGE SC SCH (09:32)
[2021-10-28] MEDS: Atorvastatin Calcium 40 MG TAB PO SCH (19:47)
[2021-10-28] MEDS: Amlodipine 5 MG TAB PO SCH (19:48)
[2021-10-29] MEDS: Acetaminophen 325 MG TAB PO PRN (04:26)
[2021-10-29] MEDS: Lisinopril 20 MG TAB PO SCH (08:10)
[2021-10-29] MEDS: Aspirin 81 mg Enteric Coated Tablet PO SCH (08:10)
[2021-10-29] MEDS: Silodosin 4 MG CAP PO SCH (08:10)
[2021-10-29] MEDS: Amiodarone 200 MG TAB PO SCH (08:10)
[2021-10-29] MEDS: levETIRAcetam 500 MG TAB PO SCH (08:10)
[2021-10-29] MEDS: Carvedilol 6.25 MG TAB PO SCH (08:11)
[2021-10-29] MEDS: Enoxaparin Sodium 40 MG/0.4 ML SYRINGE SC SCH (08:11)
[2021-10-29] MEDS: Finasteride 5 MG TAB PO SCH (08:11)
[2021-10-29] MEDS: Polyethylene Glycol 3350 17 GM Packet PO SCH (08:11)
[2021-10-29] MEDS: Clopidogrel Bisulfate 75 MG TAB PO SCH (08:11)
[2021-10-29 11:43] VITALS: BP 110/69; TEMP 98.2
[2021-10-29] MEDS ORDERED: Ciprofloxacin 500 MG TAB PO SCH (20:00)
== END 2021-10-29 14:16 | disposition home health service (06) | DRG 700 ==
LOC: ERS 03:32 → 2NO 06:24 → MSONC 10-27 21:41
PROVIDERS: ADMIT Family Medicine; ATTEND Family Medicine
DX: T83.511A Infection and inflammatory reaction due to indwelling urethral catheter, initial encounter (principal); N39.0 Urinary tract infection, site not specified; Z66 Do not resuscitate; I10 Essential (primary) hypertension; G40.909 Epilepsy, unspecified, not intractable, without status epilepticus; N40.1 Benign prostatic hyperplasia with lower urinary tract symptoms; R33.8 Other retention of urine; E78.5 Hyperlipidemia, unspecified; I48.91 Unspecified atrial fibrillation; I25.10 Atherosclerotic heart disease of native coronary artery without angina pectoris; Y84.6 Urinary catheterization as the cause of abnormal reaction of the patient, or of later complication, without mention of misadventure at the time of the procedure; Z88.5 Allergy status to narcotic agent; Z28.21 Immunization not carried out because of patient refusal; Z88.0 Allergy status to penicillin; I25.2 Old myocardial infarction; Z95.5 Presence of coronary angioplasty implant and graft; Z79.899 Other long term (current) drug therapy; Z79.02 Long term (current) use of antithrombotics/antiplatelets; Z79.82 Long term (current) use of aspirin; Z95.1 Presence of aortocoronary bypass graft
CPT/HCPCS: 36415; 70450; 74177; 80048; 80053; 80177; 81003; 81015; 83605; 83690; 84484; 85025; 87040; 87077; 87086; 87186; 93005; 96365; 96375; 97139; J0692; J1650; J1956; J3370; J3490; Q9967; U0003; U0005

== ENCOUNTER 2021-10-31 03:50 | Inpatient (IN) | payer MEDICARE ==
[2021-10-31 04:38] LABS: #Eosinphils 0.2 thou/uL (0.0-0.7); #Neutrophils 5.2 thou/uL (1.40-6.50); %Basophils 0.5 % (0.0-1.0); %Eosinophils 2.9 % (0.0-10.0); %Lymphocytes 23.1 % (21.0-51.0); %Monocytes 11.9 % (0.0-10.0); %Neutrophils 61.6 % (42.0-75.0); Hemoglobin 14.2 g/dL (14.0-18.0); Mean Corpuscular HGB CONC 32.2 g/dL (32.0-36.0); Mean Corpuscular Hemoglobin 32.4 pg (27.0-31.0); Mean Platelet Volume 7.2 fL (7.4-10.4); Platelet Count 225 thou/uL (130-400); RBC Distribution Width 12.9 % (11.5-14.5); Red Blood Cell (RBC) Count 4.38 mill/uL (4.70-6.10); White Blood Cell (WBC) Count 8.4 thou/uL (4.8-10.8)
[2021-10-31 05:04] LABS: ALT (SGPT) 62 U/L (8-55); AST (SGOT) 22 U/L (5-34); Albumin 3.4 g/dL (3.4-4.8); Alkaline Phosphatase 90 U/L (40-110); Anion Gap 12 mmol/L (10-20); BUN (Urea Nitrogen) 11 mg/dL (8.4-25.7); Bilirubin, Total 0.8 mg/dL (0.2-1.2); Calc. Creatinine Clearance 0 mL/min (70-130); Calcium 9.3 mg/dL (7.8-10.44); Carbon Dioxide 27 mmol/L (23-31); Chloride 101 mmol/L (98-107); Estimated GFR 90; Globulin 3.8 g/dL (2.4-3.5); Glucose 107 mg/dL (83-110); Potassium 3.8 mmol/L (3.5-5.1); Protein, Total 7.2 g/dL (5.8-8.1); Sodium 136 mmol/L (136-145)
[2021-10-31] MEDS ORDERED: Nitroglycerin 2% Ointment 1 INCH/1 GM Packet ONE (06:41)
[2021-10-31 08:37] LABS: Troponin I Less than 0.010 ng/mL (< 0.028)
[2021-10-31] MEDS ORDERED: Acetaminophen 500 MG TAB PO PRN (09:54)
[2021-10-31] MEDS ORDERED: Iopamidol-370 76% 500 ML 1 ML ONE (10:57)
[2021-10-31] MEDS ORDERED: Clopidogrel Bisulfate 75 MG TAB PO SCH (11:00)
[2021-10-31] MEDS ORDERED: levETIRAcetam 500 MG TAB PO SCH (11:00)
[2021-10-31] MEDS ORDERED: Amiodarone 200 MG TAB PO SCH (11:00)
[2021-10-31] MEDS ORDERED: Carvedilol 6.25 MG TAB PO SCH (11:00)
[2021-10-31] MEDS ORDERED: Aspirin 81 mg Enteric Coated Tablet PO SCH (11:00)
[2021-10-31] MEDS ORDERED: Silodosin 4 MG CAP PO SCH (11:00)
[2021-10-31] MEDS ORDERED: Clopidogrel Bisulfate 75 MG TAB ONE (11:15)
[2021-10-31] MEDS ORDERED: Ciprofloxacin 500 MG TAB ONE (11:15)
[2021-10-31] MEDS ORDERED: Aspirin Chewable 81 MG TAB ONE (11:15)
[2021-10-31] MEDS ORDERED: Ciprofloxacin 500 MG TAB PO SCH ×2 (11:15→20:00)
[2021-10-31 11:34] LABS: Troponin I Less than 0.010 ng/mL (< 0.028)
[2021-10-31] MEDS ORDERED: Cefepime 1 GM VIAL ONE (13:08)
[2021-10-31] MEDS: Cefepime 1 GM in Sodium Chloride 0.9% 100 ML IVPB SCH (13:11)
[2021-10-31 16:07] VITALS: BMI 26.1
[2021-10-31] MEDS: Carvedilol 6.25 MG TAB PO SCH (17:18)
[2021-10-31] MEDS: Atorvastatin Calcium 40 MG TAB PO SCH (20:30)
[2021-10-31] MEDS: Amlodipine 5 MG TAB PO SCH (20:30)
[2021-10-31] MEDS: levETIRAcetam 500 MG TAB PO SCH (20:30)
[2021-10-31] MEDS: Finasteride 5 MG TAB PO SCH (20:30)
[2021-10-31] MEDS ORDERED: Senokot S 8.6-50 MG TAB PO PRN (21:00)
[2021-11-01] MEDS: Cefepime 1 GM in Sodium Chloride 0.9% 100 ML IVPB SCH ×2 (00:55→12:25)
[2021-11-01 05:13] LABS: Anion Gap 14 mmol/L (10-20); BUN (Urea Nitrogen) 12 mg/dL (8.4-25.7); Calc. Creatinine Clearance 87 mL/min (70-130); Calcium 9.2 mg/dL (7.8-10.44); Carbon Dioxide 24 mmol/L (23-31); Chloride 105 mmol/L (98-107); Estimated GFR 91; Glucose 102 mg/dL (83-110); Magnesium 2.2 mg/dL (1.6-2.6); Potassium 3.8 mmol/L (3.5-5.1); Sodium 139 mmol/L (136-145)
[2021-11-01 05:27] LABS: #Eosinphils 0.2 thou/uL (0.0-0.7); #Lymphocytes 1.9 thou/uL (1.20-3.40); #Monocytes 0.9 thou/uL (0.11-0.59); #Neutrophils 4.9 thou/uL (1.40-6.50); %Basophils 0.3 % (0.0-1.0); %Eosinophils 2.8 % (0.0-10.0); %Lymphocytes 23.6 % (21.0-51.0); %Monocytes 11.8 % (0.0-10.0); %Neutrophils 61.5 % (42.0-75.0); Hemoglobin 13.3 g/dL (14.0-18.0); Mean Corpuscular HGB CONC 32.9 g/dL (32.0-36.0); Mean Corpuscular Hemoglobin 33.3 pg (27.0-31.0); Mean Platelet Volume 7.1 fL (7.4-10.4); Platelet Count 228 thou/uL (130-400); RBC Distribution Width 13.2 % (11.5-14.5)
[2021-11-01] MEDS: levETIRAcetam 500 MG TAB PO SCH ×2 (08:02→21:00)
[2021-11-01] MEDS: Amiodarone 200 MG TAB PO SCH (08:03)
[2021-11-01] MEDS: Clopidogrel Bisulfate 75 MG TAB PO SCH (08:03)
[2021-11-01] MEDS: Lisinopril 20 MG TAB PO SCH (08:03)
[2021-11-01] MEDS: Aspirin 81 mg Enteric Coated Tablet PO SCH (08:03)
[2021-11-01] MEDS: Carvedilol 6.25 MG TAB PO SCH ×2 (08:03→16:55)
[2021-11-01] MEDS: Polyethylene Glycol 3350 17 GM Packet PO SCH (08:04)
[2021-11-01] MEDS: Silodosin 4 MG CAP PO SCH (09:25)
[2021-11-01] MEDS ORDERED: Ondansetron PF 4 MG/2 ML Vial IVP PRN (11:11)
[2021-11-01] MEDS: Finasteride 5 MG TAB PO SCH (21:00)
[2021-11-01] MEDS: Amlodipine 5 MG TAB PO SCH (21:00)
[2021-11-01] MEDS: Atorvastatin Calcium 40 MG TAB PO SCH (21:00)
[2021-11-02] MEDS: Cefepime 1 GM in Sodium Chloride 0.9% 100 ML IVPB SCH ×2 (02:11→14:53)
[2021-11-02] MEDS: Lisinopril 20 MG TAB PO SCH (09:56)
[2021-11-02] MEDS: Polyethylene Glycol 3350 17 GM Packet PO SCH (09:56)
[2021-11-02] MEDS: Clopidogrel Bisulfate 75 MG TAB PO SCH (09:56)
[2021-11-02] MEDS: levETIRAcetam 500 MG TAB PO SCH (09:56)
[2021-11-02] MEDS: Carvedilol 6.25 MG TAB PO SCH ×2 (09:56→17:49)
[2021-11-02] MEDS: Amiodarone 200 MG TAB PO SCH (09:56)
[2021-11-02] MEDS: Silodosin 4 MG CAP PO SCH (09:56)
[2021-11-02] MEDS: Aspirin 81 mg Enteric Coated Tablet PO SCH (09:56)
[2021-11-02 19:48] VITALS: BP 117/70; TEMP 98.7
== END 2021-11-02 19:51 | DRG 313 ==
LOC: ERS 03:50 → ERHOLD 05:44 → 2NO 16:21 → OBSVTOIN 11-01 18:19
PROVIDERS: ADMIT Internal Medicine; ATTEND Student in an Organized Health Care Education/Training Program
DX: R07.9 Chest pain, unspecified (principal); N39.0 Urinary tract infection, site not specified; T83.511A Infection and inflammatory reaction due to indwelling urethral catheter, initial encounter; Z66 Do not resuscitate; Z20.822 Contact with and (suspected) exposure to COVID-19; G40.909 Epilepsy, unspecified, not intractable, without status epilepticus; N40.0 Benign prostatic hyperplasia without lower urinary tract symptoms; Y84.6 Urinary catheterization as the cause of abnormal reaction of the patient, or of later complication, without mention of misadventure at the time of the procedure; I25.10 Atherosclerotic heart disease of native coronary artery without angina pectoris; I10 Essential (primary) hypertension; K21.9 Gastro-esophageal reflux disease without esophagitis; E78.5 Hyperlipidemia, unspecified; Z88.0 Allergy status to penicillin; Z88.5 Allergy status to narcotic agent; Z79.899 Other long term (current) drug therapy; Z79.02 Long term (current) use of antithrombotics/antiplatelets; Z95.1 Presence of aortocoronary bypass graft
CPT/HCPCS: 36415; 71045; 71275; 80048; 80053; 83735; 84484; 85025; 85379; 93005; G0378; J0692; J3490; Q9967; U0003; U0005